=== PATIENT | male | born 1935 | race Caucasian/White ===

== ENCOUNTER 2018-12-12 18:09 | Emergency (ER) | payer OTHER ==
[~2018-12-12] VITALS: Ht 180.3 cm; Wt 119.7 kg
[~2018-12-12 18:09] MED LIST: WARF5TAB2 PO
[2018-12-12 18:17] VITALS: BP_SYST 114
== END 2018-12-12 20:40 | disposition left against medical advice (07) ==
LOC: SED 18:09
DX: S51.011A Laceration without foreign body of right elbow, initial encounter (principal); Z53.21 Procedure and treatment not carried out due to patient leaving prior to being seen by health care provider; W01.198A Fall on same level from slipping, tripping and stumbling with subsequent striking against other object, initial encounter; Y93.89 Activity, other specified; Y92.89 Other specified places as the place of occurrence of the external cause; Y99.8 Other external cause status

== ENCOUNTER 2019-11-15 20:38 | Emergency (ER) | payer MEDICARE, OTHER ==
[~2019-11-15] VITALS: Ht 180.3 cm; Wt 102.5 kg
[2019-11-15 21:05] VITALS: BP_SYST 112
[2019-11-15] MEDS ORDERED: DIPH-TET-PERTUS Vaccine 0.5 ML VIAL (ADACEL) I.M. ONE (21:30)
[2019-11-15] MEDS ORDERED: ACETAMINOPHEN 500 MG TABLET PO ONE (22:00)
[2019-11-15 23:31] VITALS: BP_SYST 112
== END 2019-11-15 23:31 | disposition home or self-care (01) ==
LOC: SED 20:38
DX: S76.011A Strain of muscle, fascia and tendon of right hip, initial encounter (principal); S83.91XA Sprain of unspecified site of right knee, initial encounter; W01.0XXA Fall on same level from slipping, tripping and stumbling without subsequent striking against object, initial encounter; Y93.89 Activity, other specified; Y92.89 Other specified places as the place of occurrence of the external cause; Y99.8 Other external cause status
CPT/HCPCS: 70450-TC; 72192-TC; 90715; 99285

== ENCOUNTER 2020-05-06 12:16 | Emergency (ER) | payer MEDICARE, OTHER ==
--- NOTE | 2020-05-06 12:30 | NUR ---
CALLED PT FOR TRIAGE, UNABLE TO LOCATE PT.
--- NOTE | 2020-05-06 12:48 | NUR ---
CALLED FOR TRIAGE, UNABLE TO LOCATE PT.
--- NOTE | 2020-05-06 12:59 | NUR ---
CALLED FOR TRIAGE, UNABLE TO LOCATE PT. PT IS [facility]
== END 2020-05-06 12:59 | disposition left against medical advice (07) ==
LOC: SED 12:16
DX: M79.602 Pain in left arm (principal); Z53.21 Procedure and treatment not carried out due to patient leaving prior to being seen by health care provider

== ENCOUNTER 2021-12-07 09:59 | Emergency (ER) | payer OTHER ==
[~2021-12-07] VITALS: Ht 180.3 cm; Wt 99.8 kg
[2021-12-07 10:45] VITALS: BP_SYST 116
[2021-12-07] MEDS: DIPH-TET-PERTUS Vaccine 0.5 ML VIAL (ADACEL) I.M. ONE (12:54)
== END 2021-12-07 14:34 | disposition home or self-care (01) ==
LOC: SED 09:59
DX: S61.411A Laceration without foreign body of right hand, initial encounter (principal); S61.512A Laceration without foreign body of left wrist, initial encounter; S62.502A Fracture of unspecified phalanx of left thumb, initial encounter for closed fracture; R51.9 Headache, unspecified; W01.0XXA Fall on same level from slipping, tripping and stumbling without subsequent striking against object, initial encounter; Y93.89 Activity, other specified; Y92.89 Other specified places as the place of occurrence of the external cause; Y99.8 Other external cause status
CPT/HCPCS: 70450-TC; 72125-TC; 76376; 90715; 99284